=== PATIENT | male | born 1970 | race Caucasian/White ===

== ENCOUNTER 2020-03-24 18:55 | Emergency (ER) | payer MEDICAID, SELFPAY ==
--- NOTE | 2020-03-24 19:00 | RT.EKG_ITS ---
APPROVED REPORT Exam: Resting ECG Patient Location: E HR:116 bpm ECG Measurements Heart Rate 116 AXIS ND 156 P 69 QRSd 84 QRS -52 QT 331 T 70 QTc 461 Conclusion Sinus tachycardia...rate> 99 Right atrial enlargement...P>0.25mV 2 lds or<-0.24mV aVR/aVL Left anterior fascicular block...axis(240,-40), init forces inf Consider left ventricular hypertrophy...(R aVL+S V3) >2.80mV I have reviewed and interpreted ECG and agree with software generated interpretation.
[2020-03-24 19:06] VITALS: BP 138/88; PULSE 128; RESP 22; TEMP 36.2; O2SAT 98
[2020-03-24] MEDS: Normal Saline 1,000 ML 1000 ML IV ×2 (20:00→21:08)
[2020-03-24 20:05] LABS: Abs Immature Grans 0.05 10^3/uL (0.0-0.06); Absolute Basophil Count 0.04 10^3/uL (0.0-0.2); Absolute Eosinophil Count 0.03 10^3/uL (0.0-0.7); Absolute Lymphocyte Count 1.87 10^3/uL (1.2-3.4); Absolute Monocyte Count 0.52 10^3/uL (0.1-0.8); Basophils % 0.4; Eosinophils % 0.3; HCT 49.3 % (40.0-50.0); HGB 17.2 g/dL (13.5-17.5); Immature Grans % 0.5; Lymphocytes % 17.3; MCH 31.7 pg (27.0-33.0); MCHC 34.9 % (32.0-36.0); MPV 10.2 fL (8.0-11.0); Monocytes % 4.8; Neutrophils % 76.7; Nucleated RBC 0 %; Platelet Count 240 10^3/uL (130-400); RBC 5.42 10^6/uL (4.36-5.78); RDW 12.2 % (11.8-14.1); RDW-SD 40.4 fL; WBC 10.82 10^3/uL (4.4-10.8)
--- NOTE | 2020-03-24 20:05 | NUR.NOTE ---
Nursing Note: per provider, no need for telemetry at this time, despite ordering troponin testing and ECG.
--- NOTE | 2020-03-24 20:10 | DI.RAD_ITS ---
EXAM: XR CHEST 2V PA LATERAL CLINICAL HISTORY: chest pain. TECHNIQUE: 2D digital imaging was performed. COMPARISON: No exams were available for comparison FINDINGS: Heart size is normal. The mediastinum is not widened. Lungs are clear. No infiltrates nor pleural effusions. IMPRESSION: No acute pulmonary findings. DATA REPOSITORY: RADIATION DOSE DELIVERED:
[2020-03-24 20:20] LABS: ALT 74 U/L (16-63); AST 35 U/L (15-37); Albumin 4.2 g/dL (3.4-5.0); Alkaline Phosphatase 95 U/L (46-116); Anion Gap 11.9 mmol/L (3-11); BUN 8 mg/dL (7-18); Bilirubin, Total 0.3 mg/dL (0.2-1.0); CO2 26.1 mmol/L (21.0-32.0); CREATININE 1.35 mg/dL (0.70-1.30); Calcium 9.2 mg/dL (8.5-10.1); Chloride 99 mmol/L (98-107); Estimated GFR 56.41 (mL/min/1.73m2); Glucose 132 mg/dL (74-106); Potassium 3.1 mmol/L (3.5-5.1); Sodium 137 mmol/L (136-145); Total Protein 8.2 g/dL (6.4-8.2)
[2020-03-24 20:21] LABS: Lipase 118 U/L (73-393); Magnesium 1.6 mg/dL (1.8-2.4)
[2020-03-24 20:25] LABS: Troponin I < 0.05 ng/mL (<0.06)
[2020-03-24 20:33] VITALS: PULSE 90; RESP 16
--- NOTE | 2020-03-24 20:33 | DI.VRAD_ITS ---
PROCEDURE INFORMATION: Exam: XR Chest, 2 Views Exam date and time: 03/24/2020 7:25 PM Age: 49 years old Clinical indication: Chest pain and sternal or substernal pain; Type not specified TECHNIQUE: Imaging protocol: XR of the chest Views: 2 views. COMPARISON: No relevant prior studies available. FINDINGS: Lungs: Unremarkable. No consolidation. Pleural space: Unremarkable. No pleural effusion. No pneumothorax. Heart/Mediastinum: Unremarkable. No cardiomegaly. Diaphragm: Eventration of right hemidiaphragm. Bones/joints: Unremarkable. IMPRESSION: No acute findings. Dictated and Authenticated by: Jaylon Armstrong MD. Ordering:SHELLY Barroso MD
[2020-03-24 20:50] LABS: ETHANOL BLOOD < 3.0 mg/dL (<3)
--- NOTE | 2020-03-24 21:34 | ED.GENADUL_ITS ---
Discharge Plan Disposition Patient Disposition: HOME Condition: Stable Discharge Details Clinical Impression: Anxiety Primary Care Provider: [facility] ED Provider: Chio Venegas Home Meds and New Rx's Prescriptions: No Action No Known Home Meds RF: 0 Discharge Instructions Instructions: Anxiety (ED) Additional Instructions: Avoid alcohol Drink at least 6 to 8 glasses of water daily to stay well-hydrated Return for new or worsening symptoms Referrals: [facility] [Primary Care Provider] - (As needed) Discharge Data Discharge Date/Time-TO BE ENTERED AT DEPARTURE: 03/24/20 23:30 Medical Decision Making EKG shows no acute ST segment changes. Will establish IV trauma routine lab including CBC CMP lipase troponin. Will give 1 L of normal saline Labs reviewed troponin negative as anticipated we will give 1 more liter of fluid and repeat a troponin. Chest x-ray shows no acute findings. Magnesium 1 g IV piggyback given and potassium 40 meq oral given He is oxygenating in the high 90s on room air heart rate improved now to 80/90. He has remained hemodynamically stable and symptoms resolved. Repeat troponin is pending I anticipate it will be negative he is prepared for discharge and will be discharged to home to follow-up outpatient with primary care provider or return sooner for new or worsening symptoms Medical Records Medical records reviewed: Yes I reviewed the patient's medical records. Medical records narrative: PROCEDURE INFORMATION: Exam: XR Chest, 2 Views Exam date and time: 03/24/2020 7:25 PM Age: 49 years old Clinical indication: Chest pain and sternal or substernal pain; Type not specified TECHNIQUE: Imaging protocol: XR of the chest Views: 2 views. COMPARISON: No relevant prior studies available. FINDINGS: Lungs: Unremarkable. No consolidation. Pleural space: Unremarkable. No pleural effusion. No pneumothorax. Heart/Mediastinum: Unremarkable. No cardiomegaly. Diaphragm: Eventration of right hemidiaphragm. Bones/joints: Unremarkable. IMPRESSION: No acute findings. Dictated and Authenticated by: Jaylon Armstrong MD. Ordering:SHELLY Barroso MD Lab Data Lab results reviewed: Yes I reviewed the patient's lab results. Lab results narrative: Laboratory Results - last 24 hr 03/24/20 03/24/20 03/24/20 19:50 19:50 19:50 WBC 10.82 H RBC 5.42 Hgb 17.2 Hct 49.3 MCV 91.0 MCH 31.7 MCHC 34.9 RDW 12.2 Plt Count 240 MPV 10.2 Immature Gran % 0.5 Neutrophils % 76.7 Lymphocytes % 17.3 Monocytes % 4.8 Eosinophils % 0.3 Basophils % 0.4 Nucleated RBC % 0 Absolute Neutrophils 8.30 H Absolute Lymphocytes 1.87 Absolute Monocytes 0.52 Absolute Eosinophils 0.03 Absolute Basophils 0.04 Sodium 137 Potassium 3.1 L Chloride 99 Carbon Dioxide 26.1 Anion Gap 11.9 H BUN 8 Creatinine 1.35 H Estimated GFR/1.73 m2 56.41 Glucose 132 H Calcium 9.2 Magnesium 1.6 L Total Bilirubin 0.3 AST 35 ALT 74 H Alkaline Phosphatase 95 Troponin I < 0.05 Total Protein 8.2 Albumin 4.2 Lipase 118 Ethyl Alcohol < 3.0 Labs: cardiac troponin I < 0.05 collected at 2259 on 03/24/20 HPI General Limitations to Documentation: other (Appears intoxicated) . Information obtained by: patient . HPI Narrative: Patient presents for evaluation of reported cannot catch my breath, patient appears very anxious and intoxicated. His vital signs are stable with a tacky pulses EKG shows no acute ST segment changes. He denies any other complaints. After reassurance patient symptoms improved and anxiety is lessened Related Data Home Medications Medication Instructions Recorded Confirmed Unknown [No Known Home Meds] 03/24/20 03/24/20 Allergies Allergy/AdvReac Type Severity Reaction Status Date / Time No Known Allergies Allergy Unverified 03/24/20 19:15 General Stated Complaint: ETOHWithdr LUIS: 3 Review of Systems Constitutional Constitutional: Denies fever(s), Denies frequent falls and Denies headache(s) Eyes Eyes: Denies change in vision ENT Ears, Nose, Mouth, and Throat: Denies dizziness, Denies otalgia, Denies headache(s), Denies nasal congestion and Denies sore throat Cardiovascular Cardiovascular: Reports chest pain (Pointing to sternum stating he feels he cannot take deep breath), Denies syncope, Denies leg edema, Denies lightheadedness and Denies dyspnea Respiratory Respiratory: Denies cough, Denies pain on inspiration and Denies dyspnea Gastrointestinal Gastrointestinal: Denies abdominal pain, Denies nausea and Denies vomiting Musculoskeletal Musculoskeletal: Denies back pain Integumentary/Breasts Skin/Breast: Denies lesions and Denies rash Neurologic Neurologic: Denies confusion, Denies dizziness, Denies syncope, Denies frequent falls and Denies headache(s) Psychiatric Psychiatric: Reports anxiety and Denies confusion [facility] Social History Smoking/Tobacco Use Status: Current every day Smoking risk assessment performed?: Yes Alcohol Intake: current Alcohol Intake frequency: 3 or more drinks per day Alcohol type: beer and hard liquor Drug use: Rarely Substance use type: marijuana Do you feel safe at home: Yes Do you feel safe in your relationship?: Yes Exam Const General: disheveled, ill appearing chronically and intoxicated appearing Nutritional Appearance: overweight Orientation: alert, awake and oriented x3 HENMT Head: normal to inspection, normocephalic and atraumatic Mouth: oral mucosae normal Chest Chest: normal inspection of the chest Resp Effort & Inspection: normal respiratory effort Auscultation: clear to auscultation bilaterally Cardio Rate: tachycardic Rhythm: regular rhythm GI Inspection: normal to inspection Palpation: soft Auscultation: normal bowel sounds Skin General skin exam: no rashes or lesions noted Neuro General: patient alert, patient awake, patient oriented x3 and no focal motor deficits Extrem General: normal to inspection and full ROM Psych Appearance: disheveled Mood: paranoid Affect: anxious affect Attitude: cooperative Insight: limited Judgment: limited Course Vital Signs Vital signs: Vital Signs Temperature 36.2 C L 03/24/20 19:06 Pulse 128 H 03/24/20 19:06 Respiratory Rate 22 03/24/20 19:06 Blood Pressure 138/88 03/24/20 19:06 Pulse Oximetry 98 03/24/20 19:06 Temperature 36.2 C L 03/24/20 19:06 Temperature Source Skin 03/24/20 19:06 Pulse 90 03/24/20 20:33 Respiratory Rate 16 03/24/20 20:33 Respiratory Effort 03/24/20 19:12 Respiratory Pattern Normal 03/24/20 19:55 Blood Pressure 138/88 03/24/20 19:06 Blood Pressure Position Sitting 03/24/20 19:06 Pulse Oximetry 98 03/24/20 19:06 Oxygen Delivery Method Room Air 03/24/20 19:06 Oxygen Flow Rate 0 03/24/20 19:06 Pain Level 0 03/24/20 19:06 Comment 03/24/20 20:33 Lab/Test Results Lab/Test Results: Laboratory Tests Range/Units 03/24/20 03/24/20 03/24/20 19:50 19:50 19:50 WBC (4.4-10.8) 10^3/uL 10.82 H RBC (4.36-5.78) 10^6/uL 5.42 Hgb (13.5-17.5) g/dL 17.2 Hct (40.0-50.0) % 49.3 MCV (80-95) fL 91.0 MCH (27.0-33.0) pg 31.7 MCHC (32.0-36.0) % 34.9 RDW (11.8-14.1) % 12.2 Plt Count (130-400) 10^3/uL 240 MPV (8.0-11.0) fL 10.2 Immature Gran % 0.5 Neutrophils % 76.7 Lymphocytes % 17.3 Monocytes % 4.8 Eosinophils % 0.3 Basophils % 0.4 Nucleated RBC % % 0 Absolute Neutrophils (1.2-6.7) 10^3/uL 8.30 H Absolute Lymphocytes (1.2-3.4) 10^3/uL 1.87 Absolute Monocytes (0.1-0.8) 10^3/uL 0.52 Absolute Eosinophils (0.0-0.7) 10^3/uL 0.03 Absolute Basophils (0.0-0.2) 10^3/uL 0.04 Sodium (136-145) mmol/L 137 Potassium (3.5-5.1) mmol/L 3.1 L Chloride (98-107) mmol/L 99 Carbon Dioxide (21.0-32.0) mmol/L 26.1 Anion Gap (3-11) mmol/L 11.9 H BUN (7-18) mg/dL 8 Creatinine (0.70-1.30) mg/dL 1.35 H Estimated GFR/1.73 m2 (mL/min/1.73m2) 56.41 Glucose (74-106) mg/dL 132 H Calcium (8.5-10.1) mg/dL 9.2 Magnesium (1.8-2.4) mg/dL 1.6 L Total Bilirubin (0.2-1.0) mg/dL 0.3 AST (15-37) U/L 35 ALT (16-63) U/L 74 H Alkaline Phosphatase (46-116) U/L 95 Troponin I (<0.06) ng/mL < 0.05 Total Protein (6.4-8.2) g/dL 8.2 Albumin (3.4-5.0) g/dL 4.2 Lipase (73-393) U/L 118 Ethyl Alcohol (<3) mg/dL < 3.0
[2020-03-24] MEDS: MAGNESIUM SULFATE 1 GM/100 ML BAG IVPB (22:07)
[2020-03-24] MEDS: Potassium Chloride 20 MEQ TABCR 40 MEQ PO (22:09)
[2020-03-24 23:07] VITALS: BP 132/79; PULSE 86
[2020-03-24 23:21] LABS: Troponin I < 0.05 ng/mL (<0.06)
[2020-03-24 23:26] VITALS: BP 132/79; PULSE 86; RESP 18; TEMP 36.5; O2SAT 99
== END 2020-03-24 23:30 | disposition home or self-care (01) ==
PROVIDERS: Emergency Provider Nurse Practitioner Acute Care; PCP Nurse Practitioner Adult Health
DX: F41.8 Other specified anxiety disorders (principal); R06.02 Shortness of breath; E83.42 Hypomagnesemia
CPT/HCPCS: 36415; 80053; 83690; 93005; 96361; 96365; 99285; 71046; 80320; 83735; 84484; 85025; 93010; 99284; J3475

== ENCOUNTER 2020-12-18 14:52 | Emergency (ER) | payer MEDICAID, SELFPAY ==
[2020-12-18 14:56] VITALS: BP 155/97; PULSE 84; RESP 18; TEMP 36.5; O2SAT 99
--- NOTE | 2020-12-18 15:59 | W.ED.GENAD ---
Discharge Plan Disposition Patient Disposition: HOME Condition: Good Discharge Details Clinical Impression: Foot laceration Primary Care Provider: Unknown,Unknown ED Provider: Lolly Rachel Home Meds and New Rx's Prescriptions: New cephalexin 500 mg capsule 500 mg PO Q6H 7 Days Qty: 28 RF: 0 Discharge Instructions Instructions: Laceration (ED) Additional Instructions: Ibuprofen and Tylenol for pain control You have one Steri-Strip holding the splint together, it should still be able to drain around the room You should check under the dressing daily You will need your next dose of antibiotics at 10:00 tonight, make sure you take the antibiotic, yogurt daily Antibiotic Should you have spreading redness, fever, worsening pain you must return to the emergency room immediately, I did not suture your wound as it is already infected and this will precipitate a worsening infection Elevate, stay off of the wound as much as possible Wear your cast shoe and do not walk barefoot Discharge Data Discharge Date/Time-TO BE ENTERED AT DEPARTURE: 12/18/20 16:19 Medical Decision Making Given delayed evaluation I do not feel comfortable suturing this laceration, it was irrigated copiously and antibiotic was initiated Dressing was applied and recommendation for 48-hour recheck was discussed Patient is alert, oriented, of decisional capacity at time of my evaluation I discussed need to return immediately should he require another laceration such as this He appears to be able to follow direction and be compliant with discharge instructions at this time He is given a dose of antibiotic prior to being discharged There is no evidence of significant cellulitis or lymphangitis Tetanus was updated X-ray images were reviewed and do not show evidence of fracture, soft tissue gas, or foreign body Recheck in 48 hours recommended Early return precautions discussed Patient expressed understanding -Care management list for PCP acquisition, will likely need wound care as we will allow this to heal by secondary intention HPI General Mode of arrival: ambulatory. Date/Time Provider Initiated Documentation: 12/18/20 15:08. Limitations to Documentation: no limitations. Information obtained by: patient. HPI Narrative: This 50-year-old gentleman presents with laceration to right foot which was repaired approximately 1:00 in the morning. Patient states he was chopping wood with a machete accidentally cut his foot. He is unsure regarding his tetanus. He denies any strength or sensation change. When asked why he presented so long after initial injury, he states that he did not have transportation. He also was under the influence of alcohol at that time. He states he drinks every couple of days. He denies drinking daily or history of alcoholism. He denies any fever or chills. Describes a mild pain to the dorsum of the foot. Related Data Home Medications Medication Instructions Recorded Confirmed cephalexin 500 mg PO Q6H 7 Days #28 cap 12/18/20 Previous Rx's Medication Instructions Recorded cephalexin 500 mg PO Q6H 7 Days #28 cap 12/18/20 Allergies Allergy/AdvReac Type Severity Reaction Status Date / Time No Known Allergies Allergy Unverified 12/18/20 15:00 General Stated Complaint: Laceration LUIS: 4 Review of Systems Narrative: Review of systems obtained x3 aside from where indicated in HPI [facility] Social History Smoking/Tobacco Use Status: Current every day Tobacco Type: cigarettes Smoking risk assessment performed?: Yes Alcohol Intake: current Alcohol Intake frequency: a few times a week Alcohol type: beer and hard liquor Drug use: Rarely Substance use type: marijuana Do you feel safe at home: Yes Do you feel safe in your relationship?: Yes Exam Const General: cooperative Neuro General: patient alert and patient oriented x3 Extrem Ankle/foot/toe images: 1. 1 inch laceration through adipose tissue with partial laceration to fascia, neurovascularly intact, strength and sensation intact Other: Slight surrounding erythema, approximately 5 mm surrounding site, no crepitus, no drainage Course Vital Signs Vital signs: Vital Signs Temperature 36.5 C 12/18/20 14:56 Pulse 84 12/18/20 14:56 Respiratory Rate 18 12/18/20 14:56 Blood Pressure 155/97 H 12/18/20 14:56 Pulse Oximetry 99 12/18/20 14:56 Temperature 36.5 C 12/18/20 14:56 Temperature Source Temporal Artery Scan 12/18/20 14:56 Pulse 84 12/18/20 14:56 Respiratory Rate 18 12/18/20 14:56 Respiratory Effort Non-Labored 12/18/20 15:01 Blood Pressure 155/97 H 12/18/20 14:56 Blood Pressure Position Sitting 12/18/20 14:56 Pulse Oximetry 99 12/18/20 14:56 Oxygen Delivery Method Room Air 12/18/20 14:56 Oxygen Flow Rate 0 12/18/20 14:56 Pain Level 3 12/18/20 14:56
[2020-12-18] MEDS: Cephalexin 500 MG CAP PO (16:14)
--- NOTE | 2020-12-18 16:14 | DI.RAD_ITS ---
Exam(s) XR FOOT RT COMPLETE EXAM: XR FOOT RT COMPLETE CLINICAL HISTORY: wound right foot. TECHNIQUE: 2D digital imaging was performed. Three views. COMPARISON: No exams were available for comparison FINDINGS: BONES: No acute fracture is present. No bony destructive lesion is seen. JOINTS: No dislocation present. SOFT TISSUE: Swelling dorsum of foot. IMPRESSION: Soft tissue swelling. No fracture. DATA REPOSITORY: RADIATION DOSE DELIVERED:
--- NOTE | 2020-12-18 16:38 | DI.VRAD_ITS ---
PROCEDURE INFORMATION: Exam: XR Right Foot Exam date and time: 12/18/2020 3:11 PM Age: 50 years old Clinical indication: Injury or trauma; Blunt trauma; Right; Injury details: Cut foot w/axe - top of foot TECHNIQUE: Imaging protocol: XR Right foot. Views: 3 or more views. COMPARISON: No relevant prior studies available. FINDINGS: Bones/joints: Normal. Soft tissues: Normal. IMPRESSION: No acute findings. Dictated and Authenticated by: Zena Urena MD. Ordering:MELISA Ambrocio MD
--- NOTE | 2020-12-18 17:44 | NUR.NOTE ---
Nursing Note: Referral to care management for pcp establishment - libl 12/18/20
== END 2020-12-18 16:19 | disposition home or self-care (01) ==
PROVIDERS: Emergency Provider Physician Assistant
DX: S91.311A Laceration without foreign body, right foot, initial encounter (principal); W26.0XXA Contact with knife, initial encounter
CPT/HCPCS: 90471; 99284; 73630; 99283

== ENCOUNTER 2021-08-16 01:45 | Emergency (ER) | payer MEDICAID, SELFPAY ==
--- NOTE | 2021-08-16 01:45 | RT.EKG_ITS ---
APPROVED REPORT Exam: Resting ECG Reason for Exam: Patient Location: E HR:84 bpm ECG Measurements Heart Rate [address] 171 P 52 QRSd 86 QRS -20 QT 374 T 65 QTc 443 Conclusion Sinus rhythm...normal P axis, V-rate 60- 99 Probable left atrial enlargement...P >50mS, <-0.10mV V1
[2021-08-16 01:54] VITALS: BP 142/92; PULSE 84; RESP 22; TEMP 37.1; O2SAT 99
[2021-08-16 01:58] VITALS: RESP 22
--- NOTE | 2021-08-16 02:00 | ED.GENADUL_ITS ---
Discharge Plan Disposition Patient Disposition: HOME Condition: Improving Discharge Details Clinical Impression: Gastritis Primary Care Provider: Unknown,Unknown ED Provider: Enrique Jerez Home Meds and New Rx's Prescriptions: New pantoprazole [Protonix] 20 mg tablet,delayed release (DR/EC) 20 mg PO DAILY Qty: 14 0RF Discharge Instructions Instructions: Gastritis (ED) Additional Instructions: Avoid spicy, fatty, fried, tomato sauce based foods as a will promote acid reflux. Additionally he should minimize caffeine, sodas, alcohol. I have prescribed you 2 weeks of antacid. You should take this daily until gone. Return to the emergency department for any acute concerns Medical Decision Making 50-year-old male presents from home burning epigastric discomfort and belching over hours time. Similar to previous episodes of GERD, but is concerned that he may be having a heart attack. Patient arrives with a reassuring exam, efficient quality assurance monitor and screening EKG obtained which reveals normal sinus rhythm. Laboratories obtained patient given PPI and Mylanta. CBC is unremarkable, chemistries reassuring with normal troponin and lipase within normal limits. Following medications HPI General Mode of arrival: ambulatory . Date/Time Provider Initiated Documentation: 08/16/21 01:47 . Limitations to Documentation: no limitations . Information obtained by: patient . History of Present Illness 50 year old M presents to the emergency department with the chief complaint of Epigastric dis comfort over hours tonight, described as mild and moderate, Quality is described as dull, and is localized to the chest and abdomen. Patient started experiencing this hour(s) and it has been intermittent. improves with No relieving factors improve symptom(s), No exacerbating factors reported . Patient notes denies cough, shortness of breath and syncope. Related Data Home Medications Medication Instructions Recorded Confirmed pantoprazole 20 mg tablet,delayed 20 mg PO DAILY #14 tab 08/16/21 release (Protonix) Previous Rx's Medication Instructions Recorded pantoprazole 20 mg tablet,delayed 20 mg PO DAILY #14 tab 08/16/21 release (Protonix) Allergies Allergy/AdvReac Type Severity Reaction Status Date / Time No Known Allergies Allergy Unverified 08/16/21 02:04 General Stated Complaint: Chest Pain LUIS: 3 Review of Systems Narrative: 8 systems reviewed and otherwise negative [facility] All Active Problems (Updated 08/16/21 @ 02:58 by Enrique Jerez MD) Foot laceration (Acute) Gastritis (Acute) Medical History (Updated 08/16/21 @ 02:58 by Enrique Jerez MD) Sporotrichosis Sporotrichosis Social History Smoking/Tobacco Use Status: Current every day Tobacco Type: cigarettes Smoking risk assessment performed?: Yes Alcohol Intake: current Alcohol Intake frequency: a few times a week Alcohol type: beer and hard liquor Drug use: Rarely Substance use type: marijuana Do you feel safe at home: Yes Do you feel safe in your relationship?: Yes Exam Narrative Exam Narrative: GEN: awake, alert, oriented 3. Pleasant, well groomed, interactive. HEAD: Normocephalic, atraumatic ENT: Mucous membranes moist, oropharynx unremarkable, External ear exam unremarkable EYES: PERRL, EOMI NECK: Full ROM, no EBENEZER, no menigismus CHEST/RESP: Nontender, clear to auscultation bilateral, no wheeze/rhonchi/rales CARDIOVASCULAR: RRR, no murmur, rub birgit. 2+ Rad pulse bilateral ABDOMEN: Soft, nontender, no mass. +Bowel sounds EXT: Full ROM, no edema, no rash Neuro: Grossly normal neurologic exam, conversant, interactive. Psych: Speech fluent, thoughts congruent, affect normal Course Vital Signs Vital signs: Vital Signs Temperature 37.1 C 08/16/21 01:54 Pulse 84 08/16/21 01:54 Respiratory Rate 08/16/21 01:54 Blood Pressure 142/92 H 08/16/21 01:54 Pulse Oximetry 99 08/16/21 01:54 Temperature 37.1 C 08/16/21 01:54 Temperature Source Oral 08/16/21 01:54 Pulse 84 08/16/21 01:54 Respiratory Rate 22 08/16/21 01:54 Blood Pressure 142/92 H 08/16/21 01:54 Blood Pressure Position Supine 08/16/21 01:54 Pulse Oximetry 99 08/16/21 01:54 Oxygen Delivery Method Room Air 08/16/21 01:54 Oxygen Flow Rate 0 08/16/21 01:54 Pain Level 7 08/16/21 01:54
[2021-08-16 02:22] LABS: Abs Immature Grans 0.02 10^3/uL (0.0-0.06); Absolute Basophil Count 0.06 10^3/uL (0.0-0.2); Absolute Eosinophil Count 0.32 10^3/uL (0.0-0.7); Absolute Lymphocyte Count 2.35 10^3/uL (1.2-3.4); Absolute Monocyte Count 0.42 10^3/uL (0.1-0.8); Absolute Neutrophil Count 3.45 10^3/uL (1.2-6.7); Basophils % 0.9; Eosinophils % 4.8; HCT 45.4 % (40.0-50.0); HGB 15.5 g/dL (13.5-17.5); Immature Grans % 0.3; Lymphocytes % 35.5; MCH 31.9 pg (27.0-33.0); MCHC 34.1 % (32.0-36.0); MCV 93 fL (80-95); MPV 10.7 fL (8.0-11.0); Monocytes % 6.3; Neutrophils % 52.2; Platelet Count 183 10^3/uL (130-400); RBC 4.86 10^6/uL (4.36-5.78); RDW 12.4 % (11.8-14.1); RDW-SD 42.8 fL; WBC 6.62 10^3/uL (4.4-10.8)
[2021-08-16 02:31] LABS: Lipase 195 U/L (73-393)
[2021-08-16 02:38] LABS: ALT 45 U/L (16-63); AST 18 U/L (15-37); Alkaline Phosphatase 97 U/L (46-116); Anion Gap 7.3 mmol/L (3-11); BUN 19 mg/dL (7-18); Bilirubin, Total 0.3 mg/dL (0.2-1.0); CO2 28.7 mmol/L (21.0-32.0); CREATININE 1.1 mg/dL (0.70-1.30); Calcium 8.7 mg/dL (8.5-10.1); Chloride 101 mmol/L (98-107); Glucose 124 mg/dL (74-106); Potassium 3.4 mmol/L (3.5-5.1); Sodium 137 mmol/L (136-145); Total Protein 7.9 g/dL (6.4-8.2); Troponin I < 50 ng/L (<or=60)
[2021-08-16] MEDS: Pantoprazole 40 MG VIAL IVP (03:15)
== END 2021-08-16 03:37 | disposition home or self-care (01) ==
PROVIDERS: Emergency Provider Emergency Medicine
DX: K29.00 Acute gastritis without bleeding (principal); R07.9 Chest pain, unspecified; F17.210 Nicotine dependence, cigarettes, uncomplicated
CPT/HCPCS: 80053; 83690; 93005; 96374; 99284; 83735; 84484; 85025; 93010; 99283